=== PATIENT | male | born 1995 | race African-American/Black ===

== ENCOUNTER 2018-04-09 21:32 | Emergency (ER) | payer SELFPAY ==
[~2018-04-09] VITALS: Ht 160 cm; Wt 154.6 kg
[2018-04-09 23:29] VITALS: BP 152/90
== END 2018-04-09 23:29 | disposition home or self-care (01) ==
LOC: EMS 21:37
DX: M25.511 Pain in right shoulder (principal); I10 Essential (primary) hypertension; V49.49XA Driver injured in collision with other motor vehicles in traffic accident, initial encounter; Y93.89 Activity, other specified; Y92.89 Other specified places as the place of occurrence of the external cause; Y99.8 Other external cause status
CPT/HCPCS: 99284